=== PATIENT | male | born 1945 | race Caucasian/White ===

== ENCOUNTER → 2019-09-09 | Outpatient (CLI) | payer MEDICARE, OTHER ==
--- NOTE | 2019-09-09 09:14 | MR ---
EXAMINATION TYPE: MR shoulder RT wo con DATE OF EXAM: 09/09/2019 7:32 AM COMPARISON: NONE HISTORY: Right shoulder pain TECHNIQUE: Multiplanar multispin echo imaging of the right shoulder was performed. FINDINGS: Rotator cuff : Full thickness partial tear involving the supraspinatus tendon just distal to the crit ical zone. There is thickening and heterogeneity of the supraspinatus tendon compatible with chronic tendinopathy. Remaining constituents of the rotator cuff are unremarkable. Bursa: No bursal effusion or thickening is seen. Musculature: There is no muscular tear, contusion, or atrophy. Acromioclavicular joint : Moderate AC joint arthropathy. Lateral downsloping of the acromion with sub acromial spurring resulting in impingement. Osseous structures : There are no fractures or regions of abnormal bone marrow signal intensity. Long biceps tendon : The biceps tendon is normally situated within the bicipital groove. No complete or partial biceps tendon tear is present. Glenohumeral Joint fluid : There is no glenohumeral joint effusion. Cartilage and Bone : No focal hyaline cartilage defects are noted. No Hill-Sachs, reverse Hill-Sachs, or bony Bankart lesions are seen. Labrum : Globular appearance inferior glenoid labrum may reflect tear. OTHER FINDINGS : none IMPRESSION: 1. Full thickness partial tear involving the supraspinatus tendon just distal to the critical zone. 2. Lateral downsloping of the acromion with subacromial spurring resulting in impingement. 3.Globular appearance inferior glenoid labrum may reflect tear.
== END | disposition home or self-care (01) ==
LOC: RADMRIMAIN 06:57
PROVIDERS: ATTEND Orthopaedic Surgery
DX: M75.111 Incomplete rotator cuff tear or rupture of right shoulder, not specified as traumatic (principal)

== ENCOUNTER 2019-10-01 08:42 | Day surgery (SDC) | payer MEDICARE, OTHER ==
[2019-09-30 11:03] VITALS: BMI 27.1
--- NOTE | 2019-09-30 14:09 | HP ---
HISTORY AND PHYSICAL DATE OF SERVICE: 10/01/2019 Larry Malhotra is a 74-year-old patient seen with progressive right shoulder pain. We discussed options for treatment. He elected to proceed with arthroscopy. Consent was obtained. Medical clearance provided by Dr. Peralta. Cardiac clearance by Dr. Jennings. PAST MEDICAL HISTORY: Hypertension, hyperlipidemia, [id number]-hfllqfhol diabetes, cardiovascular disease. PAST SURGICAL HISTORY: Coronary artery bypass surgery. DAILY MEDICATIONS: Atorvastatin, finasteride, Flomax, Glucophage, lisinopril, metoprolol. ALLERGIES: None. SOCIAL HISTORY: He denies current tobacco use. PHYSICAL EVALUATION OF THE RIGHT SHOULDER: Flexion 150 degrees, abduction 130 degrees, external rotation is 30 degrees with pain and weakness. Tenderness along the anterior lateral acromion rotator cuff insertion site. Impingement positive at 90 degrees. Drop-arm sign is positive. His distal neurovascular exam is intact. Radiographs of the right shoulder revealed a type 2 anterior acromion, acromioclavicular joint osteoarthritis and cystic changes of the greater tuberosity. Right shoulder MRI revealed rotator cuff tendon tear, acromioclavicular joint osteoarthritis and impingement. IMPRESSION: 1. Right shoulder impingement with rotator cuff tear. 2. Right shoulder acromioclavicular joint osteoarthritis. 3. Hypertension. 4. Hyperlipidemia. 5. Xrf-oaunwxo-hiboqxjzj diabetes. 6. Coronary artery disease. PLAN: Right shoulder arthroscopy with subacromial decompression, arthroscopic rotator cuff repair, Joseline procedure, biceps tenotomy and debridement. MMODL / IJN: [id number] /
[~2019-10-01 08:42] MED LIST: DEXAMETHASONE SOD PHOSPHATE 10 MG/ML 1 ML VIAL IV ONE; LACTATED RINGERS 1,000 ML IV SCH; LIDOCAINE 1% (10MG/ML) FOR IV START INTRADERMA PRN; MIDAZOLAM 2 MG/2 ML VIAL IV PRN; fentaNYL (PF) 50 MCG/ML 2 ML AMP IV PRN; fentaNYL (PF) 50 MCG/ML 2 ML AMP IVP PRN
[2019-10-01 09:41] LABS: Glucose,Whole Blood 164 mg/dL (75-99)
[2019-10-01] MEDS ORDERED: ONDANSETRON 4 MG/2 ML VIAL IVP ONE (09:57)
[2019-10-01 09:59] VITALS: RESP 16
--- NOTE | 2019-10-01 10:37 | P.ANPRN ---
Procedure Note - Anesthesia - Nerve Block Performed Right Interscalene Single Time Out Performed: Yes (1003) Date of Procedure: 10/01/19 Procedure Start Time: 10:04 Procedure Stop Time: :08 Location of Patient: PreOp Indication: Acute Post-Operative Pain, Requested by Surgeon Specifically requested for management of pain by DrShireen: Sunny Segal Sedation Type: Sedate with meaningful contact maintained Preparation: Sterile Prep Position: Supine Catheter: None Needle Types: Pajunk Needle Gauge: 21 Ultrasound used to visualize needle placement: Yes Ultrasound used to observe medication spread: Yes Injectate: Other (see comment) (Ropi 0.5% 15cc and Lido 2% with epi 15cc) Blood Aspirated: No Pain Paresthesia on Injection Noted: No Resistance on Injection: Normal Image Stored and Saved: Yes Events: Uneventful and Well Tolerated
[2019-10-01] MEDS ORDERED: ePHEDrine SULFATE/0.9% NACL/PF 50 MG/5 ML SYRINGE IV ONE (10:45)
[2019-10-01] MEDS ORDERED: fentaNYL (PF) 50 MCG/ML 2 ML AMP ONE (10:45)
[2019-10-01] MEDS ORDERED: NEOSTIGMINE 1 MG/ML 10 ML VIAL ONE (10:45)
[2019-10-01] MEDS ORDERED: GLYCOPYRROLATE 0.2 MG/ML 2 ML VIAL ONE (10:45)
[2019-10-01] MEDS ORDERED: PROPOFOL 10 MG/ML 20 ML VIAL IV ONE (10:45)
[2019-10-01] MEDS ORDERED: ROCURONIUM BROMIDE 10 MG/ML 5 ML VIAL IV ONE (10:45)
[2019-10-01] MEDS ORDERED: SUCCINYLCHOLINE CHLORIDE 100 MG/5 ML SYR IV ONE (10:45)
[2019-10-01] MEDS ORDERED: LIDOCAINE 1% INJ 10MG/ML (20 ML MDV) ONE (10:45)
[2019-10-01] MEDS ORDERED: MIDAZOLAM 2 MG/2 ML VIAL ONE (10:45)
[2019-10-01] MEDS ORDERED: ROPIVACAINE 5 MG/ML 30 ML VIAL ONE (10:45)
--- NOTE | 2019-10-01 12:49 | P.OP ---
Date of Procedure: 10/01/19 Preoperative Diagnosis: Right shoulder impingement Postoperative Diagnosis: 1. Right shoulder rotator cuff tear 2. Right shoulder impingement 3. Right shoulder acromioclavicular joint osteoarthritis 4. Right shoulder partial long head biceps tendon tear Procedure(s) Performed: 1. Right shoulder arthroscopic rotator cuff repair 2. Right shoulder arthroscopic subacromial decompression 3. Right shoulder arthroscopic Joseline procedure 4. Right shoulder arthroscopic biceps tenotomy Implants: 2Arthrex 4.75 swivel lock anchors Anesthesia: GETA, regional (Interscalene block) Surgeon: Sunny Segal Mill Dresser #1: Maciel Howard Estimated Blood Loss (ml): 11 Pathology: none sent Condition: stable Disposition: PACU Indications for Procedure: 74-year-old patient seen with progressive right shoulder pain. After treatment options were discussed, he elected to proceed with arthroscopy. Operative Findings: See description of procedure Description of Procedure: Patient underwent an interscalene block by department of anesthesia. The patient was then taken to the operative suite. The patient underwent a general anesthetic by the department of anesthesia. The patient was placed into a lateral position and secured. There was appropriate padding of the bony prominence. Right shoulder was then prepped and draped in normal sterile orthopedic fashion. We placed the extremity in 10 pounds of longitudinal traction. A posterior incision was now made for a posterior working portal site. The trocar and cannula were inserted into the glenohumeral joint. Arthroscopy was initiated. Spinal needle was now inserted anteriorly, to ascertain the anterior working portal site. An incision was now made in that area, a trocar was inserted followed by a probe. There was partial tearing long head biceps tendon. I could visualize rotator cuff tear from glenohumeral side. The labrum was found to be stable. There were mild grade 1 chondromalacia changes of both the humeral head and glenoid fossa. I performed an arthroscopic biceps tenotomy. I again probe the labrum and it was found to be stable. Instruments now removed from glenohumeral joint. Utilizing the posterior working portal site, the trocar and cannula were inserted into the subacromial space. Arthroscopy initiated. I made an incision 2 fingerbreadths lateral to the acromion. I introduced my trocar followed by my ArthroCare ablator. I now began ablating thick subacromial bursal tissue, which exposed the undersurface of the anterior acromion. There was diminished subacromial space. There was a very prominent anterior acromion. A motorized bur was introduced and a subacromial decompression was performed. I also excised some osteophytes off the inferior aspect of the distal clavicle. The AC joint was visualized and noted to be fairly arthritic. The motorized bur was introduced in the anterior portal site and a Joseline procedure was performed without difficulty, decompressing the AC joint nicely. I turned my attention to the rotator cuff. There was a 3 cm rotator cuff tendon tear along the distal supraspinatus with an extension intrasubstance component to a. I debrided the margins getting down to stable tendon tissue I abraded the footprint with a motorized bur. I now repaired the intrasubstance component with 3 [id number] sutures which repair that nicely. I now passed 2 everted mattress sutures along the anterior aspect of the tear and then 2 everted mattress sutures along the posterior aspect of the tear. I now repaired the anterior cruciate the tear utilizing one 4.75 Arthrex swivel lock anchor which did compress that area nicely. Received residual suture limbs were clipped. I now repaired the posterior aspect of the tear again utilizing one 4.75 swivel lock anchor which compressed the tendon along the footprint very nicely as well. All residual suture limbs were now clipped. We had good compression of the tendon along the entire footprint. I injected 1 mL Renyte intra-articular Instruments now removed from the portal sites. All portal sites were approximated with nylon suture. Sterile dressings were applied followed by a shoulder sling. Maciel PIEDRA assisted in this complex case. The patient was awakened, transferred to a bed, and taken to recovery in stable condition.
[2019-10-01 12:58] VITALS: TEMP 96.8
[2019-10-01 13:28] LABS: Glucose,Whole Blood 147 mg/dL (75-99)
[2019-10-01 13:38] VITALS: BP 126/70; PULSE 63
== END 2019-10-01 14:26 | disposition home or self-care (01) ==
LOC: OR 08:42
PROVIDERS: ATTEND Orthopaedic Surgery
DX: M75.101 Unspecified rotator cuff tear or rupture of right shoulder, not specified as traumatic (principal); M75.41 Impingement syndrome of right shoulder; M19.011 Primary osteoarthritis, right shoulder; S46.111A Strain of muscle, fascia and tendon of long head of biceps, right arm, initial encounter; M94.211 Chondromalacia, right shoulder; I10 Essential (primary) hypertension; E78.2 Mixed hyperlipidemia; E11.9 Type 2 diabetes mellitus without complications; I25.10 Atherosclerotic heart disease of native coronary artery without angina pectoris; Z79.899 Other long term (current) drug therapy; Z79.82 Long term (current) use of aspirin; Z82.49 Family history of ischemic heart disease and other diseases of the circulatory system; Z79.1 Long term (current) use of non-steroidal anti-inflammatories (NSAID); Z79.84 Long term (current) use of oral hypoglycemic drugs; Z95.1 Presence of aortocoronary bypass graft; K21.9 Gastro-esophageal reflux disease without esophagitis; R35.1 Nocturia; M25.50 Pain in unspecified joint; E66.3 Overweight; Z68.26 Body mass index [BMI] 26.0-26.9, adult; R01.1 Cardiac murmur, unspecified; Z87.891 Personal history of nicotine dependence; N40.0 Benign prostatic hyperplasia without lower urinary tract symptoms; X58.XXXA Exposure to other specified factors, initial encounter
CPT/HCPCS: 64415; 76942; 29826; 29827; 29824; C1713 ×2; Q4212; J2250; J1100; J2710; J0690; J2405; J2001; J3010; J2795; J0330; J2704

== ENCOUNTER 2020-01-24 19:27 | Emergency (ER) | payer MEDICARE, OTHER ==
[2020-01-24 19:37] VITALS: BP 129/73; PULSE 72; RESP 18; TEMP 98
[2020-01-24] MEDS ORDERED: LIDOCAINE 1% INJ 10MG/ML (20 ML MDV) SQ ONE (19:54)
[2020-01-24] MEDS ORDERED: DIPH,PERTUS(ACELL)TETVAC-LF 0.5 ML VIAL IM ONE (19:54)
--- NOTE | 2020-01-24 20:05 | XR ---
EXAMINATION TYPE: XR hand complete RT DATE OF EXAM: 01/24/2020 COMPARISON: NONE HISTORY: Laceration TECHNIQUE: 3 views FINDINGS: There is soft tissue swelling on the dorsum of the hand. I see no fracture nor dislocation. Metacarpals are intact. IMPRESSION: Soft tissue swelling. No fracture seen.
--- NOTE | 2020-01-24 20:44 | ED ---
Wound/Laceration HPI - General Source: patient Mode of arrival: ambulatory Limitations: no limitations <Deepthi Mcgrath - Last Filed: 01/25/20 00:09> <Mikaela Jacob - Last Filed: 01/28/20 17:33> - General Chief Complaint: Wound/Laceration Stated Complaint: Rt Hand Laceration Time Seen by Provider: 01/24/20 19:44 - History of Present Illness Initial Comments: Patient is a 74-year-old male presenting to the emergency Department with complaints of a laceration to his right hand after a fall injury yesterday. Patient states she tripped and fell and put out his right hand to brace himself and ended up with a laceration to his hand near the distal end of the middle finger. Patient states he also had a dislocated finger however he relocated himself last night. He states he does not remember his last tetanus shot. He states he did not hit his head, he has no other injuries from this fall. He has no further complaints at this time. Upon arrival to the ER, his vitals are stable. (Deepthi Mcgrath) - Related Data Home Medications Medication Instructions Recorded Confirmed Ezetimibe [Zetia] 10 mg PO HS 05/12/14 10/01/19 Lisinopril [Zestril] 10 mg PO QAM 05/12/14 10/01/19 Metoprolol Tartrate [Lopressor] 50 mg PO BID 05/12/14 10/01/19 Tamsulosin HCl [Flomax] 0.4 mg PO BID 05/12/14 10/01/19 metFORMIN HCL [Glucophage] 1,000 mg PO BID 05/12/14 10/01/19 Aspirin 81 mg PO HS 11/26/14 10/01/19 Ibuprofen [Motrin] 800 mg PO Q8H PRN 02/28/16 10/01/19 Atorvastatin [Lipitor] 80 mg PO HS 09/30/19 10/01/19 Canagliflozin [Invokana] 100 mg PO DAILY 09/30/19 10/01/19 Finasteride [Proscar] 5 mg PO DAILY 09/30/19 10/01/19 Previous Rx's Medication Instructions Recorded Hydrocodone/Acetaminophen [[place] 1 each PO Q6HR PRN #28 tab 10/01/19 5-325] Allergies Allergy/AdvReac Type Severity Reaction Status Date / Time No Known Allergies Allergy Verified 01/24/20 19:36 Review of Systems ROS Other: All systems not noted in ROS Statement are negative. <Deepthi Mcgrath - Last Filed: 01/25/20 00:09> ROS Other: All systems not noted in ROS Statement are negative. <Mikaela Jacob Gema - Last Filed: 01/28/20 17:33> ROS Statement: Those systems with pertinent positive or pertinent negative responses have been documented in the HPI. Past Medical History Past Medical History: Coronary Artery Disease (CAD), Diabetes Mellitus, Hyperlipidemia, Hypertension, Osteoarthritis (OA), Prostate Disorder Additional Past Medical History / Comment(s): rt shoulder pain,enlarged prostate, History of Any Multi-Drug Resistant Organisms: None Reported Past Surgical History: Coronary Bypass/CABG, Heart Catheterization Additional Past Surgical History / Comment(s): TRIPLE CABG 2006, Past Anesthesia/Blood Transfusion Reactions: No Reported Reaction Additional Past Anesthesia/Blood Transfusion Reaction / Comment(s): unknown if had prior blood transfusion Past Psychological History: No Psychological Hx Reported Smoking Status: Former smoker Past Alcohol Use History: None Reported Past Drug Use History: None Reported - Past Family History Mother Family Medical History: No Reported History <Deepthi Mcgrath - Last Filed: 01/25/20 00:09> General Exam Limitations: no limitations <Deepthi Mcgrath - Last Filed: 01/25/20 00:09> - General Exam Comments Initial Comments: GENERAL: Well-appearing, well-nourished and in no acute distress. HEAD: Atraumatic, normocephalic. EYES: Pupils equal round and reactive to light, extraocular movements intact, sclera anicteric, conjunctiva are normal. ENT: TMs normal, nares patent, oropharynx clear without exudates. Moist mucous membranes. NECK: Normal range of motion, supple without lymphadenopathy or JVD. LUNGS: Breath sounds clear to auscultation bilaterally and equal. No wheezes rales or rhonchi. HEART: Regular rate and rhythm without murmurs, rubs or gallops. ABDOMEN: Soft, nontender, normoactive bowel sounds. No guarding, no rebound. No masses appreciated. : Deferred EXTREMITIES: Patient has full range of motion of his right hand and fingers. He does have some bruising noted to his palmar aspect. He is neurovascular intact. No clubbing or cyanosis. NEUROLOGICAL: Normal speech, normal gait. PSYCH: Normal mood, normal affect. SKIN: Warm, Dry, normal turgor, no rashes or lesions noted. (Deepthi Mcgrath) Course Vital Signs 01/24/20 19:33 Temperature 98.0 F Pulse Rate 72 Respiratory 18 Rate Blood Pressure 129/73 O2 Sat by Pulse 96 Oximetry Procedures - Laceration Laceration #1 Consent Obtained: verbal consent Indication: laceration Site: hand (Right hand, palmar aspect) Size (cm): 2 Description: linear Depth: simple, single layer Anesthetic Used: lidocaine 1% Anesthesia Technique: local infiltration Amount (mls): 3 Pre-repair: irrigated extensively Type of Sutures: nylon Size of Sutures: 4-0 Number of Sutures: 3 Technique: simple, interrupted Patient Tolerated Procedure: well <Deepthi Mcgrath - Last Filed: 01/25/20 00:09> Medical Decision Making <Deepthi Mcgrath - Last Filed: 01/25/20 00:09> <Mikaela Jacob - Last Filed: 01/28/20 17:33> - Medical Decision Making Patient is a 74-year-old male presenting for a 2 cm laceration to his right hand, palmar aspect. X-rays reveal no acute fractures/dislocations. He did receive his tetanus vaccine today. I closed the wound with 3, 4-0 sutures loosely since this did happen yesterday. Patient tolerated procedure well. He is stable for discharge. He will have sutures removed in 7-10 days. He is in agreement with this plan of care. Case discussed with Dr. Jacob. (Deepthi Mcgrath) I was available for consultation in the emergency department. The history and physical exam were done by the midlevel provider. I was consulted for this patients care. I reviewed the case with the midlevel provider and based on their presentation of the patient, I agree with the assessment, medical decision making and plan of care as documented. Chart was dictated using [employer] dictation software. Attempts were made to correct any dictation errors however some typographical errors may persist. Patient was seen during a national state of emergency due to the Covid-19 pandemic. (Mikaela Jacob) Disposition Is patient prescribed a controlled substance at d/c from ED?: No <Deepthi Mcgrath - Last Filed: 01/25/20 00:09> <Mikaela Jacob - Last Filed: 01/28/20 17:33> Clinical Impression: Contusion of right hand, Laceration of right hand Disposition: HOME SELF-CARE Condition: Stable Instructions (If sedation given, give patient instructions): Care For Your Stitches (ED) Additional Instructions: Please return to the Emergency Department if symptoms worsen or any other concerns. Keep wound clean and dry. Sutures need to be removed in 7-10 days. Use ice to the hand and ibuprofen for discomfort. Referrals: Valentín Peralta DO [Primary Care Provider] - 1-2 days
== END 2020-01-24 20:56 | disposition home or self-care (01) ==
LOC: EC 19:27
DX: S61.411A Laceration without foreign body of right hand, initial encounter (principal); Z23 Encounter for immunization; E11.9 Type 2 diabetes mellitus without complications; I10 Essential (primary) hypertension; E78.5 Hyperlipidemia, unspecified; I25.10 Atherosclerotic heart disease of native coronary artery without angina pectoris; Z79.82 Long term (current) use of aspirin; Z79.84 Long term (current) use of oral hypoglycemic drugs; Z79.899 Other long term (current) drug therapy; Z87.891 Personal history of nicotine dependence; Z95.1 Presence of aortocoronary bypass graft; W01.0XXA Fall on same level from slipping, tripping and stumbling without subsequent striking against object, initial encounter
CPT/HCPCS: 73130; 90715; 99283; 12001; 90471; J2001

== ENCOUNTER 2021-01-21 09:40 | Emergency (ER) | payer MEDICARE, OTHER ==
[2021-01-21 09:44] VITALS: BP 147/82; PULSE 62; RESP 18; TEMP 97.7
--- NOTE | 2021-01-21 10:26 | ED ---
Lower Extremity Injury HPI - General Chief Complaint: Extremity Injury, Lower Stated Complaint: Hip pain Time Seen by Provider: 01/21/21 10:00 Source: patient Mode of arrival: wheelchair Limitations: no limitations - History of Present Illness Initial Comments: Patient is a 75-year-old male presenting to the emergency Department with complaints of right hip pain over the past few months. He states he did make an appointment with his orthopedic physician , Jacobo for a few more weeks and he can no longer take the pain. He denies any trauma or falls. He denies any previous surgeries of the right hip. He states this does been progressively getting worse. He denies any surgeries of the entire right lower extremity. He denies any fevers or chills. He has no further complaints. - Related Data Home Medications Medication Instructions Recorded Confirmed Ezetimibe [Zetia] 10 mg PO HS 05/12/14 10/01/19 Lisinopril [Zestril] 10 mg PO QAM 05/12/14 10/01/19 Metoprolol Tartrate [Lopressor] 50 mg PO BID 05/12/14 10/01/19 Tamsulosin HCl [Flomax] 0.4 mg PO BID 05/12/14 10/01/19 metFORMIN HCL [Glucophage] 1,000 mg PO BID 05/12/14 10/01/19 Aspirin 81 mg PO HS 11/26/14 10/01/19 Ibuprofen [Motrin] 800 mg PO Q8H PRN 02/28/16 10/01/19 Atorvastatin [Lipitor] 80 mg PO HS 09/30/19 10/01/19 Canagliflozin [Invokana] 100 mg PO DAILY 09/30/19 10/01/19 Finasteride [Proscar] 5 mg PO DAILY 09/30/19 10/01/19 Previous Rx's Medication Instructions Recorded Hydrocodone/Acetaminophen [[place] 1 each PO Q6HR PRN #28 tab 10/01/19 5-325] Allergies Allergy/AdvReac Type Severity Reaction Status Date / Time No Known Allergies Allergy Verified 01/21/21 09:44 Review of Systems ROS Statement: Those systems with pertinent positive or pertinent negative responses have been documented in the HPI. ROS Other: All systems not noted in ROS Statement are negative. Past Medical History Past Medical History: Coronary Artery Disease (CAD), Diabetes Mellitus, Hyperlipidemia, Hypertension, Osteoarthritis (OA), Prostate Disorder Additional Past Medical History / Comment(s): rt shoulder pain,enlarged prostate , History of Any Multi-Drug Resistant Organisms: None Reported Past Surgical History: Coronary Bypass/CABG, Heart Catheterization Additional Past Surgical History / Comment(s): TRIPLE CABG 2006, Past Anesthesia/Blood Transfusion Reactions: No Reported Reaction Additional Past Anesthesia/Blood Transfusion Reaction / Comment(s): unknown if had prior blood transfusion Past Psychological History: No Psychological Hx Reported Smoking Status: Former smoker Past Alcohol Use History: None Reported Past Drug Use History: None Reported - Past Family History Mother Family Medical History: No Reported History General Exam - General Exam Comments Initial Comments: GENERAL: Patient is well-developed and well-nourished. Patient is nontoxic and in no acute distress. HEAD: Atraumatic, normocephalic. EYES: Pupils equal round and reactive to light, extraocular movements intact, sclera anicteric, conjunctiva are normal. Eyelids were unremarkable. ENT: Nares patent, oropharynx clear without exudates. Moist mucous membranes. NECK: Normal range of motion, supple without lymphadenopathy or JVD. LUNGS: Unlabored respirations. Breath sounds clear to auscultation bilaterally and equal. No wheezes rales or rhonchi. HEART: Regular rate and rhythm without murmurs, rubs or gallops. ABDOMEN: Soft, nontender, normoactive bowel sounds. No guarding, no rebound. No masses appreciated. : Deferred MUSCULOSKELETAL: Patient has increased right hip pain with hip flexion, with resisted hip flexion as well. He is neurovascular intact. No clubbing or cyanosis. NEUROLOGICAL: Patient is alert and oriented x 3. Motor and sensory are also intact. Cranial nerves II through XII grossly intact. Symmetrical smile. Normal speech, normal gait. PSYCH: Normal mood, normal affect. SKIN: Warm, Dry, normal turgor, no rashes or lesions noted. Limitations: no limitations Course Vital Signs 01/21/21 09:41 Temperature 97.7 F Pulse Rate 62 Respiratory 18 Rate Blood Pressure 147/82 O2 Sat by Pulse 98 Oximetry Medical Decision Making - Medical Decision Making Patient is a 75-year-old male here with right hip pain increasing over the past few months. No falls or trauma, no previous surgeries. So no acute fractures dislocations. I discussed with patient this could be an increase of some inflammation, possible arthritis. I recommended ibuprofen, he states he has been taking this without improvement. I will give him a few Tylenol 3's to go home with. He can follow up with his orthopedic doctor. He is in agreement with this plan of care and he is stable for discharge. Case discussed with Dr. Bauer. Disposition Clinical Impression: Right hip pain Disposition: HOME SELF-CARE Condition: Stable Instructions (If sedation given, give patient instructions): Hip Pain (ED) Additional Instructions: Please return to the Emergency Department if symptoms worsen or any other concerns. Recommend ibuprofen for discomfort, if pain continues, may take a Tylenol #3 at nighttime. Follow-up with your orthopedic doctor. Is patient prescribed a controlled substance at d/c from ED?: No Referrals: Valentín Peralta DO [Primary Care Provider] - 1-2 days Sunny Segal DO [Doctor of Osteopathic Medicine] - 1-2 days Time of Disposition: 11:00
--- NOTE | 2021-01-21 10:31 | XR ---
EXAMINATION TYPE: XR Hip Complete RT DATE OF EXAM: 01/21/2021 CLINICAL HISTORY: pain TECHNIQUE: AP and frogleg views of the right hip are obtained. COMPARISON: None. FINDINGS: There is no acute fracture/dislocation evident. The joint space appears within normal li mits. The overlying soft tissue appears unremarkable. IMPRESSION: 1. There is no acute fracture or dislocation. ICD 10 NO FRACTURE, INITIAL EVALUATION
[2021-01-21] MEDS ORDERED: ACET/COD 300 MG/30 MG STARTER PACK 6 TAB BTL PO STA (11:00)
== END 2021-01-21 11:08 | disposition home or self-care (01) ==
LOC: EC 09:40
DX: M25.551 Pain in right hip (principal); E11.9 Type 2 diabetes mellitus without complications; E78.5 Hyperlipidemia, unspecified; I10 Essential (primary) hypertension; I25.10 Atherosclerotic heart disease of native coronary artery without angina pectoris; M19.90 Unspecified osteoarthritis, unspecified site; Z79.82 Long term (current) use of aspirin; Z79.84 Long term (current) use of oral hypoglycemic drugs; Z87.891 Personal history of nicotine dependence; Z95.1 Presence of aortocoronary bypass graft; Z79.899 Other long term (current) drug therapy
CPT/HCPCS: 73502; 99283

== ENCOUNTER → 2021-03-10 | Outpatient (CLI) | payer MEDICARE | END | disposition home or self-care (01) | LOC: LABPAT 12:05 | PROVIDERS: ATTEND Orthopaedic Surgery | DX: Z01.812 Encounter for preprocedural laboratory examination (principal); M16.11 Unilateral primary osteoarthritis, right hip | CPT/HCPCS: 87070 ==

== ENCOUNTER 2021-03-20 08:38 | Day surgery (SDC) | payer MEDICARE ==
[2021-03-15 10:25] VITALS: BMI 27.1
--- NOTE | 2021-03-19 13:36 | HP ---
HISTORY AND PHYSICAL DATE OF SURGERY: 03/20/2021 Larry Malhotra is a 75-year-old gentleman seen with symptomatic right hip osteoarthritis. We discussed options for treatment. He elected to proceed with right total hip arthroplasty. Consent regarding the procedure was obtained. Medical clearance was provided by Dr. Peralta. Cardiac clearance was provided by Dr. Jennings. PAST MEDICAL HISTORY: Hyperlipidemia, hypertension, [id number] diabetes, cardiovascular disease. PAST SURGICAL HISTORY: Coronary artery bypass surgery. DAILY MEDICATIONS: Atorvastatin, finasteride, aspirin, Glucophage, lisinopril, metoprolol, Flomax. ALLERGIES: NONE. SOCIAL HISTORY: He denies tobacco use. PHYSICAL EVALUATION OF THE RIGHT HIP: Physical evaluation of the right hip shows very limited range of motion, severe pain. Positive hip impingement sign. Straight-leg raise is negative. His distal neurovascular exam is intact. RADIOGRAPHS: Radiographs of the right hip reveal severe osteoarthritic changes. IMPRESSION: 1. Right hip osteoarthritis. 2. Hypertension. 3. Hyperlipidemia. 4. Dhl-sqndecv-qszsfkigv diabetes. 5. Coronary artery disease. PLAN: Direct anterior right total hip arthroplasty. MMODL / IJN: [id number] /
[~2021-03-20 08:38] MED LIST changes: +ACETAMINOPHEN TAB 500 MG TAB PO PRN; -DEXAMETHASONE SOD PHOSPHATE 10 MG/ML 1 ML VIAL IV ONE; +HYDROmorphone 0.5 MG/0.5 ML SYRINGE IVP PRN; +MELOXICAM 7.5 MG TAB PO PRN; -MIDAZOLAM 2 MG/2 ML VIAL IV PRN; +ONDANSETRON 4 MG/2 ML VIAL IVP ONE; +TRANEXAMIC ACID 1,000 MG in SODIUM CHLORIDE 0.9% 100 ML IVPB PRN; -fentaNYL (PF) 50 MCG/ML 2 ML AMP IV PRN; -fentaNYL (PF) 50 MCG/ML 2 ML AMP IVP PRN
[2021-03-20 09:35] LABS: Glucose,Whole Blood 171 mg/dL (75-99)
[2021-03-20] MEDS ORDERED: LACTATED RINGERS 1,000 ML IV ONE ×8 (09:42→13:24)
[2021-03-20] MEDS ORDERED: MIDAZOLAM 2 MG/2 ML VIAL ONE (09:48)
[2021-03-20] MEDS ORDERED: HYDROmorphone (PF) 1 MG/ML ONE (09:48)
[2021-03-20] MEDS ORDERED: SODIUM CHLORIDE 0.9% 100 ML BAG ONE (09:48)
[2021-03-20] MEDS ORDERED: PROPOFOL 10 MG/ML 20 ML VIAL IV ONE (09:48)
[2021-03-20] MEDS ORDERED: fentaNYL (PF) 50 MCG/ML 2 ML AMP ONE (09:48)
[2021-03-20] MEDS ORDERED: SUCCINYLCHOLINE CHLORIDE 100 MG/5 ML SYR IV ONE (09:48)
[2021-03-20] MEDS ORDERED: LIDOCAINE 1% INJ 10MG/ML (20 ML MDV) ONE (09:48)
[2021-03-20] MEDS ORDERED: METOPROLOL TARTRATE 5 MG/5 ML VIAL IVP ONE (09:48)
[2021-03-20] MEDS ORDERED: KETAMINE 10 MG/ML 20 ML VIAL ONE (09:48)
[2021-03-20] MEDS ORDERED: TRANEXAMIC ACID 1,000 MG/10 ML VIAL ONE (09:48)
[2021-03-20] MEDS ORDERED: ceFAZolin 1,000 MG in SODIUM CHLORIDE 0.9% 1,000 ML IRRIGATION ONE (09:52)
[2021-03-20] MEDS: ROPIVACAINE/EPI/CLONIDINE/KET 50 ML SYRINGE MISCELLANE PRN ×2 (10:23→11:07)
[2021-03-20] MEDS ORDERED: HYDROmorphone 0.2 MG/1 ML SYRINGE IM PRN (11:27)
[2021-03-20] MEDS ORDERED: HYDROcodone/APAP 5-325MG 1 EACH TAB PO PRN ×2 (11:27)
[2021-03-20] MEDS ORDERED: ONDANSETRON 4 MG/2 ML VIAL IVP PRN (11:27)
[2021-03-20] MEDS ORDERED: HYDROmorphone 0.5 MG/0.5 ML SYRINGE IVP PRN ×2 (11:27)
[2021-03-20] MEDS ORDERED: NALOXONE 0.4 MG/ML 1 ML VIAL IV PRN (11:27)
--- NOTE | 2021-03-20 11:27 | P.OP ---
Date of Procedure: 03/20/21 Preoperative Diagnosis: Right hip osteoarthritis Postoperative Diagnosis: Right hip osteoarthritis Procedure(s) Performed: Direct anterior right total hip arthroplasty Implants: 1. Depuy Corail KA size 12 with collar press-fit femoral stem 2. Depuy pinnacle 60 mm multi hole press-fit acetabular shell 3. Depuy pinnacle neutral polyethylene acetabular liner 60 mm OD 36 mm ID 4. Biolox delta ceramic femoral head +1.5 36 mm Anesthesia: FRANCISCOA, local Surgeon: Sunny Segal Banking Pin Adjuster #1: Maciel Howard Estimated Blood Loss (ml): 85 Pathology: other (Femoral head) Condition: stable Disposition: PACU Indications for Procedure: 75-year-old patient seen with symptomatic right hip osteoarthritis. After treatment options were discussed, he elected to proceed with direct anterior right total hip arthroplasty. Operative Findings: See description of procedure Description of Procedure: The patient was taken to the operative suite. Patient underwent a general anesthetic by the department of anesthesia. Patient was then transferred to the [place] table. Patient was given preoperative IV antibiotics and TXA. Both lower extremities were placed in standard leg spars. The hip was then prepped and draped in the normal sterile orthopedic fashion. A standard anterior incision was made beginning 3 cm lateral and 1 cm distal to the ASIS extending 10 cm. Dissection was then carried down through the subcutaneous soft tissues down to the fascia overlying the tensor fascia linda. An incision was now made through the fascia. Careful dissection was taken down exposing the tensor fascia linda muscle. A Cobra retractor was now placed along the medial femoral neck and a second one along the lateral femoral neck. The venous circumflex vessels were now identified, cauterized and clipped. We identified the anterior hip capsule. An incision was made through the hip capsule along the lateral border. I performed a partial anterior capsulectomy. Retractors were now placed around the femoral neck itself. A femoral neck cut was now made with a sagittal saw. It was completed with an osteotome at the lateral neck area. The femoral head was now removed without difficulty. The extremity was now rotated to 60 of external rotation. It was locked in position. Residual labrum was now debrided out. Serial reaming was performed of the acetabulum while Huseyin PIEDRA assisted holding an anterior retractor for exposure. Once we reached the appropriate size and a trial was position and fit nicely. The appropriate size was now chosen opened and made available. It was introduced into the acetabulum without difficulty. The C-arm/fluoroscopy was now brought into the operative field. We made sure we had a true AP pelvic view. We now under direct C-arm/fluoroscopy introduced into the acetabular component with appropriate version and inclination. I held the cup in appropriate position well Huseyin PIEDRA used a mallet to seat the acetabular component. I noted the component now to be well seated and stable. Acetabular cup introduce her was removed. The C-arm was pulled back. An appropriate liner was introduced and clicked into position. It was felt to be stable. At this point retractors were removed. The extremity was now placed into 140 external rotation with no traction. The leg was now dropped to the ground and adducted. Appropriate retractors were now positioned along the proximal femur. We also placed our femoral look into position. Additional capsular releasing was performed to gain access to the proximal femur. We now used a box osteotome. A canal finder was now utilized. Serial broaching was now performed with the assistance of Huseyin PIEDRA tapping the broaches down with a mallet while held the broach in appropriate rotation and position. This was done until we reached the appropriate size with good overall rotational stability. Appropriate calcar planing was performed. A trial head/neck was placed into position. The hip was now reduced. The C- arm/fluoroscopy was brought back into the operative field. I obtained an AP pelvis demonstrating adequate leg length positioning. I evaluated the trial components in the appeared be appropriately sized in position. The C- arm/fluoroscopy was pulled back. Retractors were repositioned and the hip was dislocated. The leg was again taken down to the ground and adducted. Appropriate retractors were repositioned as well as the femoral hook. All trial components were removed. The femoral implant was opened along with the femoral head. The femoral implant was introduced on the appropriate handle into our pre-broached area. I held the component position well Huseyin PIEDRA used a mallet to seat the femoral component. The femoral component was now noted to be well seated and stable.. The femoral head was introduced with good positioning and fixation noted. Retractors were now removed. The hip was now reduced. There appeared be good positioning of the hip confirmed on intraoperative fluoroscopy. Spot films were obtained to document this. A second gram of TXA was given. The deep and superficial soft tissues were infiltrated with local a nalgesic. Bipolar cautery had been utilized intermittently through the procedure for hemostasis. The wound was irrigated copiously with pulse lavage mechanical irrigation. The fascia was repaired with Vicryl suture. The subcutaneous soft tissues were repaired in layers with Vicryl suture. The skin was approximated with pernio/Dermabond. Sterile dressings were applied. Patient was then awakened, transferred to a bed and taken to recovery in stable condition. Huseyin PIEDRA assisted with the complex procedure.
--- NOTE | 2021-03-20 11:50 | FL ---
Fluoroscopy History: RIGHT ANTERIOR HIP REPLACEMENT 23 SEC FLUORO, 2 IMAGES SENT
[2021-03-20 11:52] VITALS: TEMP 96.8
[2021-03-20 12:05] LABS: Glucose,Whole Blood 200 mg/dL (75-99)
[2021-03-20] MEDS ORDERED: INSULIN ASPART (NovoLOG) 100 UNIT/ML VIAL SQ ONE ×2 (12:11→13:25)
[2021-03-20 13:05] LABS: Glucose,Whole Blood 227 mg/dL (75-99)
[2021-03-20] MEDS ORDERED: HYDROcodone/APAP 5-325MG 1 EACH TAB PO ONE (13:28)
[2021-03-20 14:08] VITALS: RESP 16
[2021-03-20 14:49] LABS: Glucose,Whole Blood 215 mg/dL (75-99)
[2021-03-20 15:24] VITALS: BP 132/73; PULSE 85
--- NOTE | 2021-03-21 07:30 | XR ---
EXAMINATION TYPE: XR Hip Limited RT DATE OF EXAM: 03/20/2021 COMPARISON: NONE HISTORY: Postop TECHNIQUE: One view submitted. FINDINGS: There is postsurgical change in near anatomic alignment. There is soft tissue edema and emphysema. IMPRESSION: 1. Postoperative change. Appears in near-anatomic alignment.
== END 2021-03-20 15:32 | disposition home health service (06) ==
LOC: OR 08:38
PROVIDERS: ATTEND Orthopaedic Surgery
DX: M16.11 Unilateral primary osteoarthritis, right hip (principal); E78.5 Hyperlipidemia, unspecified; I10 Essential (primary) hypertension; E11.9 Type 2 diabetes mellitus without complications; I25.10 Atherosclerotic heart disease of native coronary artery without angina pectoris; Z95.1 Presence of aortocoronary bypass graft; Z79.899 Other long term (current) drug therapy; Z79.82 Long term (current) use of aspirin; Z79.84 Long term (current) use of oral hypoglycemic drugs; N40.0 Benign prostatic hyperplasia without lower urinary tract symptoms
CPT/HCPCS: 97110; 97161; 86900; 86901; 86850; 88300; 73501; 27130; C1776; J2250; J0690 ×2; J2405; J2001; J3010; J1170 ×2; J0330; J2704

== ENCOUNTER 2022-06-11 06:23 | Emergency (ER) | payer MEDICARE, OTHER ==
[2022-06-11 06:29] VITALS: PULSE 69; TEMP 97.7
[2022-06-11] MEDS ORDERED: KETOROLAC 15 MG/ML 1 ML VIAL IVP STA (06:41)
[2022-06-11] MEDS ORDERED: SODIUM CHLORIDE 0.9% 500 ML 500 ML IV STA (06:41)
--- NOTE | 2022-06-11 07:00 | ED ---
Back Pain HPI - General Chief Complaint: Back Pain/Injury Stated Complaint: LT flank pain Time Seen by Provider: 06/11/22 06:30 Source: patient, RN notes reviewed Limitations: no limitations - History of Present Illness Initial Comments: Patient is a 77 year old male presenting to the ER with a chief complaint of left flank pain. Patient states this has been occurring for a couple of months. Patients describes it as a achy pain located about left CVA. He reports the pain is a 6/10 when sitting up and is worse when laying down rating it a 10/10. Patient states today the pain has been progressively getting worse prompting his visit for evaluation. He denies recent injuries/or hx back surgery. Denies abdominal pain, dysuria, increase in urinary frequency, change in bowel habits, fevers, chills, nightsweats. - Related Data Home Medications Medication Instructions Recorded Confirmed Ezetimibe [Zetia] 10 mg PO DAILY 05/12/14 03/20/21 Metoprolol Tartrate [Lopressor] 50 mg PO BID 05/12/14 03/20/21 Tamsulosin HCl [Flomax] 0.4 mg PO BID 05/12/14 03/20/21 lisinopriL [Zestril] 10 mg PO QAM 05/12/14 03/20/21 metFORMIN HCL [Glucophage] 1,000 mg PO BID 05/12/14 03/20/21 Aspirin 81 mg PO HS 11/26/14 03/20/21 Ibuprofen [Motrin] 800 mg PO Q8H PRN 02/28/16 03/20/21 Atorvastatin [Lipitor] 80 mg PO DAILY 09/30/19 03/20/21 Canagliflozin [Invokana] 100 mg PO HS 09/30/19 03/20/21 Finasteride [Proscar] 5 mg PO DAILY 09/30/19 03/20/21 Acetaminophen [Tylenol Arthritis] 650 mg PO BID 03/15/21 03/20/21 Acetaminophen-Codeine 300-30mg 1 tab PO BID 03/15/21 03/20/21 [Tylenol w/codeine #3] Calcium Carbonate [Tums Ultra 470 mg PO DIRECTED PRN 03/15/21 03/20/21 Strength] Previous Rx's Medication Instructions Recorded Aspirin [Adult Low Dose Aspirin EC] 81 mg PO BID #60 tablet. 03/20/21 Docusate [Colace] 100 mg PO DAILY #30 capsule 03/20/21 HYDROcodone/APAP 5-325MG [[place] 1 tab PO Q6HR PRN #28 tab 03/20/21 5-325] Ketorolac [Toradol] 10 mg PO Q8HR #15 tab 06/11/22 Allergies Allergy/AdvReac Type Severity Reaction Status Date / Time No Known Allergies Allergy Verified 06/11/22 06:26 Review of Systems ROS Statement: Those systems with pertinent positive or pertinent negative responses have been documented in the HPI. ROS Other: All systems not noted in ROS Statement are negative. Past Medical History Past Medical History: Coronary Artery Disease (CAD), Diabetes Mellitus, Hyperlipidemia, Hypertension, Osteoarthritis (OA), Prostate Disorder Additional Past Medical History / Comment(s): rt shoulder pain,enlarged prostate, History of Any Multi-Drug Resistant Organisms: None Reported Past Surgical History: Coronary Bypass/CABG, Heart Catheterization Additional Past Surgical History / Comment(s): TRIPLE CABG 2006, Past Anesthesia/Blood Transfusion Reactions: No Reported Reaction Additional Past Anesthesia/Blood Transfusion Reaction / Comment(s): unknown if had prior blood transfusion Past Psychological History: No Psychological Hx Reported Smoking Status: Former smoker Past Alcohol Use History: None Reported Past Drug Use History: None Reported - Past Family History Mother Family Medical History: Cancer General Exam Limitations: no limitations General appearance: alert, in no apparent distress Respiratory exam: Present: normal lung sounds bilaterally. Absent: respiratory distress, wheezes, rales, rhonchi, stridor Cardiovascular Exam: Present: regular rate, normal rhythm, normal heart sounds. Absent: systolic murmur, diastolic murmur, rubs, gallop, clicks GI/Abdominal exam: Present: soft, normal bowel sounds. Absent: distended, tenderness, guarding, rebound, rigid Back exam: Present: normal inspection Neurological exam: Present: alert, oriented X3, CN II-XII intact Psychiatric exam: Present: normal affect, normal mood Skin exam: Present: warm, dry, intact, normal color. Absent: rash Course Vital Signs 06/11/22 06:26 Temperature 97.7 F Pulse Rate 69 Respiratory 16 Rate Blood Pressure 188/93 O2 Sat by Pulse 98 Oximetry Medical Decision Making - Medical Decision Making 77-year-old male presented from for sided back pain. Labs and CT were obtained CT was read by me and shows evidence of internal hernia, nephrolithiasis. There is no other acute processes. Patient does feel improved after Toradol. Patient will be discharged in stable condition will follow-up return parameters discussed. - Lab Data Result diagrams: 06/11/22 06:55 06/11/22 06:55 Lab Results 06/11/22 06/11/22 06/11/22 Range/Units 06:55 06:55 06:55 WBC 5.6 (3.8-10.6) k/uL RBC 4.65 (4.30-5.90) m/uL Hgb 14.5 (13.0-17.5) gm/dL Hct 42.0 (39.0-53.0) % MCV 90.4 (80.0-100.0) fL MCH 31.2 (25.0-35.0) pg MCHC 34.5 (31.0-37.0) g/dL RDW 12.2 (11.5-15.5) % Plt Count 108 L (150-450) k/uL MPV 8.3 Neutrophils % 56 % Lymphocytes % 32 % Monocytes % 5 % Eosinophils % 3 % Basophils % 1 % Neutrophils # 3.1 (1.3-7.7) k/uL Lymphocytes # 1.8 (1.0-4.8) k/uL Monocytes # 0.3 (0-1.0) k/uL Eosinophils # 0.2 (0-0.7) k/uL Basophils # 0.0 (0-0.2) k/uL Sodium 142 (137-145) mmol/L Potassium 4.1 (3.5-5.1) mmol/L Chloride 107 (98-107) mmol/L Carbon Dioxide 27 (22-30) mmol/L Anion Gap 8 mmol/L BUN 18 (9-20) mg/dL Creatinine 0.87 (0.66-1.25) mg/dL Est GFR (CKD-EPI)AfAm >90 (>60 ml/min/1.73 sqM) Est GFR (CKD-EPI)NonAf 83 (>60 ml/min/1.73 sqM) Glucose 125 H (74-99) mg/dL Plasma Lactic Acid Isaías 1.2 (0.7-2.0) mmol/L Calcium 9.1 (8.4-10.2) mg/dL Total Bilirubin 0.8 (0.2-1.3) mg/dL AST 31 (17-59) U/L ALT 34 (4-49) U/L Alkaline Phosphatase 49 (38-126) U/L Total Protein 6.2 L (6.3-8.2) g/dL Albumin 4.1 (3.5-5.0) g/dL Amylase 56 (30-110) U/L Lipase 315 H (23-300) U/L Urine Color Urine Appearance (Clear) Urine pH (5.0-8.0) Ur Specific [place] (1.001-1.035) Urine Protein (Negative) Urine Glucose (UA) (Negative) Urine Ketones (Negative) Urine Blood (Negative) Urine Nitrite (Negative) Urine Bilirubin (Negative) Urine Urobilinogen (<2.0) mg/dL Ur Leukocyte Esterase (Negative) 06/11/22 Range/Units 07:03 WBC (3.8-10.6) k/uL RBC (4.30-5.90) m/uL Hgb (13.0-17.5) gm/dL Hct (39.0-53.0) % MCV (80.0-100.0) fL MCH (25.0-35.0) pg MCHC (31.0-37.0) g/dL RDW (11.5-15.5) % Plt Count (150-450) k/uL MPV Neutrophils % % Lymphocytes % % Monocytes % % Eosinophils % % Basophils % % Neutrophils # (1.3-7.7) k/uL Lymphocytes # (1.0-4.8) k/uL Monocytes # (0-1.0) k/uL Eosinophils # (0-0.7) k/uL Basophils # (0-0.2) k/uL Sodium (137-145) mmol/L Potassium (3.5-5.1) mmol/L Chloride (98-107) mmol/L Carbon Dioxide (22-30) mmol/L Anion Gap mmol/L BUN (9-20) mg/dL Creatinine (0.66-1.25) mg/dL Est GFR (CKD-EPI)AfAm (>60 ml/min/1.73 sqM) Est GFR (CKD-EPI)NonAf (>60 ml/min/1.73 sqM) Glucose (74-99) mg/dL Plasma Lactic Acid Isaías (0.7-2.0) mmol/L Calcium (8.4-10.2) mg/dL Total Bilirubin (0.2-1.3) mg/dL AST (17-59) U/L ALT (4-49) U/L Alkaline Phosphatase (38-126) U/L Total Protein (6.3-8.2) g/dL Albumin (3.5-5.0) g/dL Amylase (30-110) U/L Lipase (23-300) U/L Urine Color Yellow Urine Appearance Clear (Clear) Urine pH 6.5 (5.0-8.0) Ur Specific [place] 1.031 (1.001-1.035) Urine Protein Negative (Negative) Urine Glucose (UA) 4+ H (Negative) Urine Ketones Trace H (Negative) Urine Blood Negative (Negative) Urine Nitrite Negative (Negative) Urine Bilirubin Negative (Negative) Urine Urobilinogen <2.0 (<2.0) mg/dL Ur Leukocyte Esterase Negative (Negative) Disposition Clinical Impression: Internal hernia, Nephrolithiasis, Back pain Disposition: HOME SELF-CARE Condition: Stable Instructions (If sedation given, give patient instructions): Back Pain (ED) Additional Instructions: Please return to the Emergency Department if symptoms worsen or any other concerns. Prescriptions: Ketorolac [Toradol] 10 mg PO Q8HR #15 tab Is patient prescribed a controlled substance at d/c from ED?: No Referrals: Valentín Peralta DO [Primary Care Provider] - 1-2 days Zain Johnson MD [STAFF PHYSICIAN] - 1-2 days Juvencio Corral MD [STAFF PHYSICIAN] - 1-2 days Time of Disposition: 08:15
[2022-06-11 07:04] LABS: Basophils % (A) 1 %; Eosinophils # (A) 0.2 k/uL (0-0.7); Eosinophils % (A) 3 %; HGB 14.5 gm/dL (13.0-17.5); Lymphocytes # (A) 1.8 k/uL (1.0-4.8); Lymphocytes % (A) 32 %; MCH 31.2 pg (25.0-35.0); MCHC 34.5 g/dL (31.0-37.0); MCV 90.4 fL (80.0-100.0); Mean Platelet Volume 8.3; Monocytes # (A) 0.3 k/uL (0-1.0); Monocytes % (A) 5 %; Neutrophils # (A) 3.1 k/uL (1.3-7.7); Neutrophils % (A) 56 %; Platelet Count 108 k/uL (150-450); RBC 4.65 m/uL (4.30-5.90); RDW 12.2 % (11.5-15.5); WBC 5.6 k/uL (3.8-10.6)
[2022-06-11 07:06] LABS: Appearance,Urine Clear (Clear); Bilirubin,Urine Negative (Negative); Blood,Urine Negative (Negative); Color,Urine Yellow; Glucose,Urine (UA) 4+ (Negative); Ketones,Urine Trace (Negative); Leukocyte Esterase,Urine Negative (Negative); Nitrite,Urine Negative (Negative); PH, Urine 6.5 (5.0-8.0); Protein,Urine Negative (Negative); Specific Gravity,Urine 1.031 (1.001-1.035); Urobilinogen,Urine <2.0 mg/dL (<2.0)
[2022-06-11 07:14] LABS: ALT 34 U/L (4-49); AST 31 U/L (17-59); African American GFR (CKD) >90 (>60 ml/min/1.73 sqM); Albumin 4.1 g/dL (3.5-5.0); Alkaline Phosphatase 49 U/L (38-126); Amylase 56 U/L (30-110); Anion Gap 8 mmol/L; Blood Urea Nitrogen 18 mg/dL (9-20); Calcium 9.1 mg/dL (8.4-10.2); Carbon Dioxide 27 mmol/L (22-30); Chloride 107 mmol/L (98-107); Glucose 125 mg/dL (74-99); Lipase 315 U/L (23-300); Non-African American GFR(CKD) 83 (>60 ml/min/1.73 sqM); Potassium 4.1 mmol/L (3.5-5.1); Sodium 142 mmol/L (137-145); Total Bilirubin 0.8 mg/dL (0.2-1.3); Total Protein 6.2 g/dL (6.3-8.2)
--- NOTE | 2022-06-11 08:03 | CT ---
EXAMINATION TYPE: CT abdomen pelvis w con DATE OF EXAM: 06/11/2022 COMPARISON: None. HISTORY: Left flank pain CT DLP: 1229.2 mGycm, Automated Exposure Control for Dose Reduction was Utilized. CONTRAST: CT scan of the abdomen and pelvis is performed without oral but with IV Contrast, patient injected wi th 100 mL of Isovue 300. FINDINGS: LUNG BASES: Partial visualization of sternal wires and epicardial pacer wires. Dependent atelectasis in both bases.. LIVER/GB: Visualized liver heterogeneously hypodense suggesting diffuse fatty infiltration. PANCREAS: No significant abnormality is seen. SPLEEN: No significant abnormality is seen. ADRENALS: No significant abnormality is seen. KIDNEYS: There are 2 nonobstructing 2 mm calculi upper pole right kidney coronal image 67. There are 3 left-sided renal calculi measuring up to 6 mm in size midpole level axial image 36. There is symmet christoph cortical injury uptake and excretion without hydronephrosis or obstructing ureter calculi seen bi laterally. No intraluminal calculi in the poorly distended bladder. Suboptimal evaluation of the blad haris due to streak artifact from right hip arthroplasty. BOWEL: Small 1.3 cm duodenal diverticulum along the second portion coronal image 48. No suspicious sm all or large bowel dilatation. PROSTATE/SEMINAL VESICLES: Enlarged prostate consistent with BPH bulging into the bladder base. LYMPH NODES: No greater than 1cm abdominal or pelvic lymph nodes are appreciated. OSSEOUS STRUCTURES: Moderate disc space narrowing and vacuum disc phenomenon L2-L3 level. Posterior s pur effaces the anterior thecal sac at this level sagittal image 71. Mild disc space narrowing and va cuum disc phenomenon L4-L5 and L5-S1 levels. Bridging anterior in lateral osteophytes in the thoracic spine are seen. OTHER: Focal swirling of mesenteric vessels with mild fat stranding right mid abdomen axial images 35 through 44 for reference. Prominent but subcentimeter lymph nodes at this level are noted. One bowel loop is within this area but does not show suspicious dilatation to suggest obstruction. Moderate peripheral calcified plaque of the aorta extends into branch vessels. IMPRESSION: Bilateral nonobstructing nephrolithiasis. No hydronephrosis or obstructing ureteral calcu li clearly seen bilaterally. No acute findings evident to comp for patient's symptoms of left-sided f lank pain. Focal swirling of mesenteric vessels with mass effect and mild fat stranding an focal prom inent but subcentimeter lymph nodes is suggestive of right-sided internal hernia.
[2022-06-11 08:45] VITALS: BP 153/92; RESP 15
== END 2022-06-11 08:45 | disposition home or self-care (01) ==
LOC: EC 06:23
DX: K46.9 Unspecified abdominal hernia without obstruction or gangrene (principal); N20.0 Calculus of kidney; I11.9 Hypertensive heart disease without heart failure; I25.10 Atherosclerotic heart disease of native coronary artery without angina pectoris; E11.9 Type 2 diabetes mellitus without complications; E78.5 Hyperlipidemia, unspecified; M19.90 Unspecified osteoarthritis, unspecified site; Z87.891 Personal history of nicotine dependence; Z79.899 Other long term (current) drug therapy; Z79.82 Long term (current) use of aspirin; Z79.84 Long term (current) use of oral hypoglycemic drugs
CPT/HCPCS: 36415; 80053; 82150; 83605; 83690; 85025; 81003; 74177; 99284; 96374; 96361; J1885; Q9967